=== PATIENT | male | born 1965 | race Caucasian/White ===

== ENCOUNTER 2017-11-19 13:39 | Emergency (ER) | payer SELFPAY ==
[~2017-11-19] VITALS: Ht 180.3 cm; Wt 85.0 kg
[~2017-11-19 13:39] MED LIST: CLIN150 PO; LISI-363 PO; MMW SWISH-SWAL; TRAM50 PO; Z.0.NO CURRENT MEDS; [UNRECOGNIZED DRUG - CODE] PO
[2017-11-19 13:43] VITALS: BP 136/95; PULSE 77; RESP 16; TEMP 98.6; O2SAT 99
[2017-11-19] MEDS ORDERED: TETANUS/DIPHTHERIA TOXOID ADULT 0.5 ML VIAL IM ONE (15:00)
--- NOTE | 2017-11-19 15:09 | PD ---
HPI Chief Complaint: Skin Problem Time Seen by Provider: 14:38 Travel History International Travel<30 days: No Contact w/Intl Traveler<30days: No Traveled to known affect area: No History of Present Illness HPI Patient is a 52-year-old male who presents the emergency room with multiple complaints. Patient reports that 2 weeks ago, he was power washing a house and thinks that something must have got into his eye. Patient reports that he had sudden loss of vision to his left eye, reports that he has not been able to see from his left eye for the past 2 weeks. Patient describes this as a painless loss of vision to his left eye. Patient reports that he irrigated his eye after the injury, patient concerned that he cannot see from his left eye. Patient reports that he does not wear contacts or glasses. Patient also complaining of pain to his left hand digit #3. Patient reports that 3 weeks ago, he noticed that his left hand digit #3 was swollen. Reports that 2 weeks ago, he had pus coming out of his finger and now "it's just red and swollen." Patient requesting antibiotics for his finger infection. Patient denies any injury or trauma to his hand. Reports that tetanus is not up -to-date. Patient also complaining of a sore throat, patient reports that for the past week, his throat has been hurting him. Patient denies any difficulty swallowing , although he reports that it does hurt when he swallows. Patient with no fever chills, no sick contacts. PFSH Past Medical History Medical History: Denies Significant Hx Arthritis: No Autoimmune Disease: No Blood Disorders: No Cancer: No Cardiovascular Problems: No Diminished Hearing: No Endocrine: No Immune Disorder: No Musculoskeletal: Yes (RIGHT LITTLE FINGER BROKENCOUPLE OF WEEKS AGO) Neurologic: No Psychiatric: No Reproductive: No Respiratory: No Sickle Cell Disease: No ?: Not Past Surgical History Abdominal Surgery: No AICD: No Arteriovenous Shunt: No Cardiac Surgery: No Ear Surgery: No Endocrine Surgery: No Eye Surgery: No Genitourinary Surgery: No Insulin Pump: No Joint Replacement: No Oral Surgery: No Pacemaker: No Thoracic Surgery: No Other Surgery: Yes Social History Alcohol Use: No Tobacco Use: Yes (06/26 PPD) Substance Use: No Allergies-Medications (Allergen,Severity, Reaction): Coded Allergies: codeine (Unverified Allergy, Severe, NAUSEA/VOMITING, 11/19/17) penicillin G (Unverified Allergy, Intermediate, RASH, SWELLING, 11/19/17) tomato (Unverified Allergy, Intermediate, SWELLING, 11/19/17) acetaminophen (Unverified Adverse Reaction, Mild, NAUSEA AND VOMITING, ) propoxyphene (Unverified Adverse Reaction, Mild, NAUSEA AND VOMITING, 11/19) Reported Meds & Prescriptions Reported Meds & Active Scripts Active Review of Systems General / Constitutional: No: Fever Eyes: No: Visual changes HENT: Positive: Sore Throat, No: Headaches Cardiovascular: No: Chest Pain or Discomfort Respiratory: No: Shortness of Breath Gastrointestinal: No: Abdominal Pain Genitourinary: No: Dysuria Musculoskeletal: Positive: Pain (left hand digit #3) Skin: No Rash Neurologic: No: Weakness Psychiatric: No: Depression Endocrine: No: Polydipsia Hematologic/Lymphatic: No: Easy Bruising Physical Exam Narrative GENERAL: Well-nourished, well-developed patient. SKIN: Focused skin assessment warm/dry. HEAD: Normocephalic. EYES: No scleral icterus. No injection or drainage. NECK: Supple, trachea midline. No JVD or lymphadenopathy. No FB to b/l eyes, no hyphema or hypopion ENT: Uvula midline and patent, bilateral tonsils with no edema or injection, airways are open. CARDIOVASCULAR: Regular rate and rhythm without murmurs, gallops, or rubs. RESPIRATORY: Breath sounds equal bilaterally. No accessory muscle use. GASTROINTESTINAL: Abdomen soft, non-tender, nondistended. MUSCULOSKELETAL: No cyanosis LUE: patient with mild swelling to left digit #3, patient with normal flexion- extension to digit #3, there is no obvious drainage or areas of fluctuance, no signs of flexor tenosynovitis RUE: normal exam BACK: Nontender without obvious deformity. No CVA tenderness. Data Data Last Documented VS Vital Signs Date Time Temp Pulse Resp B/P (MAP) Pulse Ox O2 Delivery O2 Flow Rate FiO2 11/19/17 13:43 98.6 77 16 136/95 (109) 99 Orders Orders Group A Rapid Strep Screen (11/19/17 14:48) Hand, Limited (2vws) (11/19/17 ) Tetanus/Diphtheria Tox Adult (Tetanus/Di (11/19/17 15:00) MDM Medical Decision Making Medical Screen Exam Complete: Yes Emergency Medical Condition: Yes Medical Record Reviewed: Yes Interpretation(s) Vital Signs Date Time Temp Pulse Resp B/P (MAP) Pulse Ox O2 Delivery O2 Flow Rate FiO2 11/19/17 13:43 98.6 77 16 136/95 (109) 99 Differential Diagnosis Differential for vision loss includes retinal artery occlusion, keratitis, corneal edema, hyphema, uveitis, vitreous hemorrhage, retinal detachment, traumatic optic neuropathy Differential for finger includes finger cellulitis/abscess, Differential for sore throat includes strep pharyngitis, viral syndrome Narrative Course Last Impressions Hand X-Ray 11/19/17 0000 Signed Impressions: CONCLUSION: No acute findings. 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 Patient is a 52-year-old male who presents the emergency room with complaints of vision loss for the past 2 weeks. I did review possibilities of retinal artery occlusion, given that symptoms have been ongoing for the past 2 weeks, I discussed need for patient to follow-up with technical applications scientist tomorrow. A mandatory referral was placed for ophthalmology. As per patient's sore throat, rapid strep was negative. Most likely viral syndrome Plan to start patient on antibiotics for his finger infection. Tetanus was updated today. Discussed need for him to have follow-up care and 48 hours for reevaluation of his symptoms, signs and symptoms of worsening infection were reviewed with patient. Diagnosis Primary Impression: Finger abrasion, infected Qualified Codes: S60.419A - Abrasion of unspecified finger, initial encounter ; L08.9 - Local infection of the skin and subcutaneous tissue, unspecified Additional Impressions: Vision loss of left eye Sore throat Patient Instructions: General Instructions Departure Forms: Tests/Procedures, Work Release Enter return to work date: November 22, 2017 Additional Instructions: Please follow-up with an technical applications scientist as soon as possible Please follow up with your primary care doctor in 2-3 days Return to the ER if symptoms worsen or progress Return to the ER as needed Please take all antibiotics as prescribed Med/Other Pt SpecificInfo: Prescription(s) given Scripts Sulfamethoxazole-Trimethoprim (Bactrim DS) 800-160 Mg Tab 1 TAB PO BID for Infection, #20 TAB 0 Refills Prov: Anjana Buchanan DO 5/28/18 Disposition: 01 DISCHARGE HOME Condition: Stable Buchanan,Anjana L DO November 19, 2017 15:09
--- NOTE | 2017-11-19 15:17 | RADRPT ---
EXAM DATE: 11/19/2017 3:09 PM EDT AGE/SEX: 52 years / Male INDICATIONS: Pain in left hand, third digit, no known injury. CLINICAL DATA: This is the patient's initial encounter. Patient reports that signs and symptoms have been present for 3 weeks and indicates a pain score of 6/10. MEDICAL/SURGICAL HISTORY: None. None. COMPARISON: No prior [facility] exams available for comparison. FINDINGS: Bony structures are intact and in normal alignment. Osseous density is normal. Soft tissues are unre markable. No radiopaque foreign bodies seen. CONCLUSION: No acute findings. 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 Electronically signed by: Art Ardon MD 11/19/2017 3:16 PM EDT
[2017-11-19] MEDS ORDERED: BACT800T5 PO (15:39)
[2017-11-19] MEDS ORDERED: CLINDAMYCIN 150 MG CAP PO ONE (15:45)
[2017-11-19] MEDS ORDERED: SULFAMETHOXAZOLE-TRIMETHOPRIM DS 800-160 MG TAB PO ONE (15:45)
== END 2017-11-19 16:06 | disposition home or self-care (01) ==
LOC: NEPD 13:39
DX: S60.413A Abrasion of left middle finger, initial encounter (principal); L08.9 Local infection of the skin and subcutaneous tissue, unspecified; H54.62 Unqualified visual loss, left eye, normal vision right eye; J02.9 Acute pharyngitis, unspecified; F17.200 Nicotine dependence, unspecified, uncomplicated; X58.XXXA Exposure to other specified factors, initial encounter; Z23 Encounter for immunization; Z88.0 Allergy status to penicillin; Z88.5 Allergy status to narcotic agent
CPT/HCPCS: 73120; 87081; 87880; 90471; 90714; 96372